=== PATIENT | female | born 1975 | race Caucasian/White ===

== ENCOUNTER 2020-06-13 07:58 | Day surgery (SDC) | payer OTHER ==
[~2020-06-13 07:58] MED LIST: CIPRO500 MG PO; DICY10CA PO; INTESTINEX1 CA1 PO; NEUROTIN PO; OMEPRAZOLE20 M1 PO; ULTRACET PO
== END 2020-06-13 12:40 | disposition home or self-care (01) ==
LOC: AMB-ENDOS 07:58
PROVIDERS: ATTEND Surgery
DX: K62.89 Other specified diseases of anus and rectum (principal); K64.8 Other hemorrhoids; Z20.822 Contact with and (suspected) exposure to COVID-19